=== PATIENT | male | born 1955 | race Caucasian/White ===

== ENCOUNTER 2022-04-29 07:54 | Emergency (ER) | payer BC, SELFPAY ==
[2022-04-29 08:07] VITALS: BP 152/108; PULSE 96; RESP 18; TEMP 36.8; O2SAT 94
[2022-04-29 09:27] LABS: Influenza A QL RT-PCR Negative (Negative); Influenza B QL RT-PCR Negative (Negative); SARS-CoV-2 RNA PCR Positive
--- NOTE | 2022-04-29 10:48 | ED.URI ---
HPI - URI/Sore Throat General Chief Complaint: Upper Respiratory Infection Stated Complaint: URI Time Seen by Provider: 04/29/22 08:02 History of Present Illness HPI Narrative: Patient is a 66-year-old male who presents ER with cold symptoms. Ongoing for 2 to 3 days. Sinus congestion with sore throat and cough. Has discomfort when he lays backwards and feels like he is gagging. Has pain with swallowing due to sore throat. No chest pain or chest pressure. Reports was also sick but was not tested for COVID or flu. No alleviating factors. Related Data Home Medications Medication Instructions Recorded Confirmed aspirin 81 mg tablet,delayed 81 mg PO DAILY 08/16/19 04/08/22 release (Adult Low Dose Aspirin) niacin 1,000 mg tablet,extended 1,000 mg PO ONCE 08/16/19 04/08/22 release 24 hr omega-3 fatty acids 1,000 mg 1,000 mg PO DAILY 08/16/19 04/08/22 capsule (Fish Oil Concentrate) Allergies Allergy/AdvReac Type Severity Reaction Status Date / Time No Known Allergies Allergy Verified 04/08/22 08:15 Review of Systems Review of Systems: All systems reviewed & are unremarkable except as noted in HPI and below Constitutional: Constitutional: Denies chills, Reports fatigue and Reports fever(s) ENT: Reports nasal congestion and Reports sore throat Cardiovascular: Cardiovascular: Denies chest pain, Denies rapid heart rate and Denies radiating jaw, neck or arm pain Respiratory: Respiratory: Reports cough and Denies dyspnea Gastrointestinal: Gastrointestinal: Denies abdominal pain, Denies nausea and Denies vomiting [facility] Past Medical History Medical History (Updated 04/29/22 @ 10:49 by Ivan Gunter MD) Cholecystectomy planned Surgical History Surgical History H/O hernia repair Family History Family History Father Family history of lung cancer Patient's father is Sibling Family history of heart disease in male family member before age 55 Mother Hypertension Family history of heart disease in male family member before age 55 Other Diabetes mellitus Social History Social History Smoking status: Never smoker Second hand tobacco smoke exposure: No Alcohol intake: current Alcohol use details: social Substance use: never Substance use type: does not use Exam Narrative: GENERAL: Well-appearing, well-nourished, and in no acute distress. HEAD: Normocephalic, atraumatic. EYES: PERRL and EOMI. ENT: Mucous membranes moist. Uvula mildly edematous and red. No tonsillar hypertrophy or exudate. NECK: Supple. CHEST: Clear to auscultation. No respiratory distress. HEART: Regular rate and rhythm. Normal peripheral pulses. EXTREMITIES: Normal range of motion. No edema. NEURO: Alert and oriented x3. PSYCH: Normal mood and affect. Course Course Emergency Course: Patient resting comfortably. Informed of results. We will give 1 dose of dexamethasone for uvulitis. Discharge. Did for home. Vital Signs Vital signs: Vital Signs Temperature 98.3 F 04/29/22 08:07 Pulse Rate 96 04/29/22 08:07 Respiratory Rate 18 04/29/22 08:07 Blood Pressure 152/108 H 04/29/22 08:07 Pulse Oximetry 94 04/29/22 08:07 Oxygen Delivery Room Air 04/29/22 08:07 Temperature 98.3 F 04/29/22 08:07 Pulse Rate 96 04/29/22 08:07 Respiratory Rate 18 04/29/22 08:07 Blood Pressure 152/108 H 04/29/22 08:07 Pulse Oximetry 94 04/29/22 08:07 Oxygen Delivery Room Air 04/29/22 09:58 MDM - URI/Sore Throat Lab Data Labs: Lab Results 04/29/22 Range/Units 08:43 Influenza A (RT-PCR) Negative (Negative) Influenza B (RT-PCR) Negative (Negative) SARS-CoV-2 RNA (RT-PCR) Positive A Strep Screen Presumptive Negative *(Reference Range
[2022-04-29 11:04] VITALS: BP 152/85; PULSE 93; RESP 20; O2SAT 92
== END 2022-04-29 11:05 | disposition home or self-care (01) ==
PROVIDERS: Emergency Provider Emergency Medicine; PCP Internal Medicine
DX: U07.1 COVID-19 (principal); K12.2 Cellulitis and abscess of mouth; Z79.82 Long term (current) use of aspirin
CPT/HCPCS: 87081; 87636; 87880; 99283; J8540

== ENCOUNTER 2022-07-17 09:43 | Outpatient (CLI) | payer BC, MEDICARE, SELFPAY ==
--- NOTE | 2022-07-17 11:04 | ECG_ITS ---
Measurements Intervals [place] Rate: 71 P: -21 NC: 186 QRS: -34 QRSD: 109 T: 6 QT: 423 QTc: 460 Interpretive Statements SINUS RHYTHM MARKED LEFT AXIS DEVIATION [QRS AXIS < -30] VOLTAGE CRITERIA FOR LVH [MEETS CRITERIA IN ONE OF: R(aVL), S(V1), R(V5), R(V5/V6)+S(V1)] NONSPECIFIC T-WAVE ABNORMALITY ABNORMAL ECG NO PREVIOUS ECG AVAILABLE FOR COMPARISON Electronically Signed On 07-17-2022 14:00:44 [employer]EWEL[employer] APPRENTICE by Jassi Harris M.D.
[2022-07-17 12:07] LABS: Basophils Percent Auto 0.4 % (0.2-1.2); Eosinophils Absolute Auto 0.4 K/mm3 (0-0.3); Eosinophils Percent Auto 5.5 % (0-4.4); Hematocrit 54.9 % (42.0-52.0); Hemoglobin 18.4 g/dL (14.0-18.0); Immature Granulocyte Absolute 0.02 K/mm3 (0.00-0.031); Immature Granulocyte Percent A 0.3 % (0-0.5); Lymphocytes Absolute Auto 1.64 K/mm3 (0.9-3.2); Lymphocytes Percent Auto 21.9 % (18.3-44.2); Mean Corpuscular HGB Conc 33.5 g/dl (32-36); Mean Corpuscular Hemoglobin 31.5 pg (26-34); Mean Platelet Volume 10.1 fl (7.4-10.4); Monocytes Absolute Auto 0.6 K/mm3 (0.1-0.6); Monocytes Percent Auto 7.9 % (2.6-8.5); Neutrophils Absolute Auto 4.8 K/mm3 (1.3-6.7); Platelet Count Result 240 k/mm3 (150-375); Red Blood Count 5.84 M/mm3 (4.6-6.20); Red Cell Distribution Width 12.3 % (11.5-14.5); White Blood Count 7.5 K/mm3 (4.5-10.0)
[2022-07-17 12:16] LABS: Urine Cotinine NEGATIVE
[2022-07-17 12:17] LABS: Albumin Level 4.6 g/dL (3.5-5.1); Anion Gap 7 mmol/L (8-16); Blood Urea Nitrogen 16 mg/dL (9-20); Calcium 8.9 mg/dL (8.4-10.2); Carbon Dioxide 29 mmol/L (22-30); Chloride 101 mmol/L (98-107); Estimated Glomerular Filt Rate > 60; Glucose 104 mg/dL (65-110); Potassium 3.5 mmol/L (3.4-5.0); Sodium 137 mmol/L (137-145)
[2022-07-17 12:19] LABS: Hemoglobin A1C 5.2 % (<5.7)
== END 2022-07-17 09:44 | disposition home or self-care (01) ==
PROVIDERS: PCP Family Medicine Sports Medicine; Visit Provider Orthopaedic Surgery
DX: Z01.812 Encounter for preprocedural laboratory examination (principal); Z01.810 Encounter for preprocedural cardiovascular examination; M17.12 Unilateral primary osteoarthritis, left knee; R94.31 Abnormal electrocardiogram [ECG] [EKG]
CPT/HCPCS: 80048; 80307; 82040; 83036; 85025; 87081; 93005

== ENCOUNTER 2024-09-27 00:17 | Emergency (ER) | payer MEDICARE, SELFPAY ==
[2024-09-27] VITALS (20 sets, daily range): BP systolic 164–197; BP diastolic 103–118; PULSE 66–97; RESP 13–23; TEMP 36.4; O2SAT 89–99
--- NOTE | ~2024-09-27 | CT_ITS ---
Non-contrast Head CT History: Status post fall, altered mental status Technique: Axial non-contrast imaging of the brain was performed. Dose reduction technique was used on this scan by utilizing automated exposure control and iterative reconstruction technique. The dose -length product (DLP) was 681.00 mGy-cm. Findings: There is no evidence of intracranial hemorrhage, mass lesion, or acute infarct. Brain par enchyma appears normal. The ventricles and subarachnoid spaces are normal in size. The calvarium ap pears normal. The visualized paranasal sinuses and mastoid air cells are clear. Impression: No significant abnormality seen. Reviewed, dictated and finalized at location . Impression: No significant abnormality seen.
--- NOTE | ~2024-09-27 | CT_ITS ---
Noncontrast CT scan of the cervical spine Technique: Multiple contiguous axial [address] images of the cervical spine were obtained and rec onstructed in 2D sagittal and coronal planes on the acquisition scanner. Dose reduction technique was used on this scan by utilizing automated exposure control, adjustment of the mA and/or kV according to patient size. The dose-length product (DLP) was 522.14 mGy-cm. Clinical History: Pain Findings: No fractures or dislocations. There is straightening of the normal cervical lordosis. Ther e is advanced degenerative disc narrowing at C4-C5, C5-C6, and C6-C7. There is mild left neural jewel inal narrowing at C3-C4 with left facet arthropathy and left osteophyte complex. There is bilateral n eural foraminal narrowing, left worse than right, at C4-C5. There is left neural foraminal narrowing at C5-C6. There is mild bilateral neural foraminal narrowing at C6-C7, right worse than left. No prev ertebral soft tissue swelling. Impression: No fracture or subluxation of the cervical spine. Moderate degenerative spondylosis, as above. Reviewed, dictated and finalized at location . Impression: No fracture or subluxation of the cervical spine. Moderate degenerative spondylosis, as above.
--- NOTE | ~2024-09-27 | XR_ITS ---
Portable chest x-ray Comparison: None Clinical History: Dizziness Findings: Lungs are clear, without focal consolidation or pleural effusion. Cardiomediastinal silho uette is prominent. Bones and soft tissues are unremarkable. Impression: Clear lungs. Reviewed, dictated and finalized at location M. Impression: Clear lungs.
--- NOTE | ~2024-09-27 | CT_ITS ---
CT ANGIOGRAM NECK AND HEAD History: Altered mental status, dizziness. Technique: Serial spiral axial images through the head and neck were obtained during arterial phase I V injection of 100 cc of Omnipaque 350. 3-D postprocessing and MIP images were then reconstructed on the remote workstation. Dose reduction technique was used on this scan by utilizing automated exposur e control and iterative reconstruction technique. The dose-length product (DLP) was 1205.88 mGy-cm. CTA neck findings: Bilateral vertebral arteries are patent. Bowel, carotid, internal carotid, and ex ternal carotid arteries are patent. No large vessel occlusion or stenosis. No aneurysm. The proximal right internal carotid artery demonstrates 0% stenosis relative to the normal distal artery lumen francesca meter. The proximal left internal carotid artery demonstrates 0% stenosis relative to the normal dist al artery lumen diameter. CTA head findings: Distal vertebral arteries, basilar artery, and posterior cerebral arteries are pat ent. Distal internal carotid arteries, middle cerebral arteries, and anterior cerebral arteries are p atent. No large vessel occlusion or stenosis. No aneurysm. Impression: No significant abnormality. Reviewed, dictated and finalized at location . Impression: No significant abnormality.
--- OUTSIDE RECORDS SUMMARY | 2024-09-27 00:21 | XMS_ITS | Data Portability ---
Author Organization [place] [facility], Main Office Address [address] [place] [address] Care Team Providers Care Summer Internship Name Role Phone GAYATHRI CLARK Primary Care Provider GAYATHRI CLARK Referring Provider [phone] Assessment Encounter Date Assessment Date Assessment LastModified by Organization Details LastModified Time 06/10/2023 06/10/2023 HPI: Patient returns. He is here for cortisone injection into both of his knees. It is about a week early from his 3 month ivelisse. Last shots were right at 3 months ago and work well for him. He is getting ready to leave town for the next several months to go to [place] and then [place]. He wished to have injections for left. Physical exam: 67-year-old male alert pleasant. He walks relatively well without her assistance. Has mild effusions in both knees. Range of motion is from 3-135 degrees bilaterally. Mild tenderness over both medial joint lines to palpation. No lateral joint line tenderness. No patellofemoral grind. No increased swelling in either lower extremity. After ChloraPrep was used on skin 20 mg Kenalog and 3 cc of 0.5% ropivacaine was injected into both knees. Risk of infection discussed. Impression: 67-year-old male has moderately severe medial compartment osteoarthritis in both knees. Shots continue give him excellent relief. He will call when he feels he needs additional injection is needed. [email or web address] Not available 06/10/2023 09:58:25 09/17/2023 09/17/2023 The patient has severe primary osteoarthritis both knee joints as described. Under sterile conditions I injected both knee joints in the office today with 4 cc 0.5% Marcaine and 20 mg of Kenalog each. The patient tolerated procedure well I will see him back as needed he was given a brochure on [facility] today if he decides to come back he will let us know what he wants to do with cortisone versus gel shots. He voiced understanding agrees above plan call for any further problems difficulties or questions. Not available 09/17/2023 10:05:47 12/22/2023 12/22/2023 The patient has severe primary osteoarthritis both knee joints as described. Under sterile conditions I injected both knee joints in the office today with 4 cc 0.5% Marcaine and 20 mg of Kenalog each. The patient tolerated the procedure well. I will see him back in 3 months if necessary to do this again. If the shots do not work well for him he will call and let us know he wants to try gel shots if necessary. He was also given a refill on his naproxen 500 mg b.i.d. with food he will continue with this. He voiced understanding agrees above plan call for any further problems difficulties or questions. Not available 12/22/2023 15:32:46 03/24/2024 03/24/2024 The patient has severe primary osteoarthritis both knee joints. Under sterile conditions I injected both knee joints in the office today with 4 cc 0.5% bupivacaine and 20 mg of Kenalog each. The patient tolerated the procedures well. The patient is going to [place] for 6 months for the winter wanted a copy of his x-rays to take with him so he can get injections out there if necessary over the winter. We will also give him a refill of naproxen 500 mg b.i.d. with food at his request. I will see him back here as needed the patient voiced understanding agrees above plan he will call for any further problems difficulties or questions. Not available 03/24/2024 09:13:10 09/23/2024 09/23/2024 The patient has severe primary osteoarthritis both knee joints left worse than right. We talked about treatment options today in detail he is going to continue with naproxen 500 mg twice a day he would like shots of cortisone both knees therefore under sterile conditions I injected both knee joints in the office with 4 cc 0.5% bupivacaine and 20 mg of Kenalog each. The patient tolerated both procedures well. I will see him back as needed we can do this again in 3 months if necessary we also talked about the possibility of doing gel shot series if the cortisone does not work very well for him we will can try that. For now he is going to stick with cortisone he will call us when he needs anything else he voiced understanding agrees with the above plan. Not available 09/23/2024 12:00:59 Plan of Treatment Reminders Order Date Submit Date Provider Last Modified By Organization Details Last Modified Time Details Appointments None recorded. Lab None recorded. Referral None recorded. Procedures injection/a spiration joint/bursa (PROC) 2024 025 [email or web address] In-Office Order, Internal Use Only DO Not Attach Compendium DO Not Attach Compendium, Do Not Delete/merge, [id number] 11:44:44 injection/a spiration joint/bursa (PROC) 2023 024 [email or web address] In-Office Order, Internal Use Only DO Not Attach Compendium DO Not Attach Compendium, Do Not Delete/merge, [id number] 09:03:39 injection/a spiration joint/bursa (PROC) - in office procedure, administere d by provider 2023 024 [email or web address] In-Office Order, Internal Use Only DO Not Attach Compendium DO Not Attach Compendium, Do Not Delete/merge, [id number] 4 15:17:42 injection/a spiration joint/bursa (PROC) - in office procedure, administere d by provider 2023 024 [email or web address] In-Office Order, Internal Use Only DO Not Attach Compendium DO Not Attach Compendium, Do Not Delete/merge, [id number] 11:28:59 injection/a spiration joint/bursa (PROC) - in office procedure, administere d by provider 2022 023 In-Office Order, Internal Use Only DO Not Attach Compendium DO Not Attach Compendium, Do Not Delete/merge, [id number] 09:27:22 Surgeries None recorded. Imaging XR, knee 2024 025 [email or web address] [facility] [place], [address], [place], [address], 5 13:22:59 XR, knee 2022 023 [email or web address] [facility] [place], [address], [place], [address], 3 20:16:41 Medication Orders bupivacaine HCl 0.5 % (5 mg/mL) injection solution 2024 025 [id number], [address], [place], [place], [id number], 5 13:22:59 Kenalog 10 mg/mL suspension for injection 2024 025 [employer] [facility] #33449, [address], [place], [place], [id number], 5 13:22:59 bupivacaine HCl 0.5 % (5 mg/mL) injection solution 2023 024 [email or web address] [facility] #[id number], [address], [place], [place], [id number], 5 11:42:07 Kenalog 10 mg/mL suspension for injection 2023 024 [email or web address] [facility] #97610, [address], [place], [place], [id number], 5 11:42:18 naproxen 500 mg tablet 2023 024 [email or web address] [facility] #44081, [address], [place], [place], [id number], 4 09:26:25 Kenalog 10 mg/mL suspension for injection [email or web address], [address], [place], [address], 5 11:42:18 Marcaine (PF) 0.5 % (5 mg/mL) injection solution 2023 024 [facility], [address], [place], [address], 5 11:42:23 naproxen 500 mg tablet 2023 024 [email or web address] [facility] #90224, [address], [place], [place], [id number], 4 16:09:56 Kenalog 10 mg/mL suspension for injection [address], [address], [place], [address], 5 11:42:18 Marcaine (PF) 0.5 % (5 mg/mL) injection solution [address], [address], [place], [address], 5 11:42:23 Kenalog 10 mg/mL suspension for injection [address], [address], [place], [address], 5 11:42:18 ropivacaine (PF) 5 mg/mL (0.5 %) injection solution [address], [address], [place], [address], 5 11:42:45 Patient TargetsNo targets recorded. Patient InstructionsNo instructions recorded. Reason for Referral None Reported. Results Created Date Observation Date Name Description Value Unit Range Abnormal Flag Note LastModifiedBy Organization Detail LastModifiedTime 06/10/20 23 XR, knee No observ ation record ed. [email or web address] [facility] [place] [address], [place], [address], 06/10/2023 09:57:10 09/24/19 25 XR, knee No observ ation record ed. [email or web address] [facility] [place] [address], [place], [address], 09/23/2024 12:01:51 Result Notes None recorded. Problems Name Problem SNOMED Code Status Onset Date Resolution Date Notes Provider Name and Address Organization Details Recorded Time Osteoarthr itis 756346856 Active Not Available [facility] 3 20:42:50 Pain of left knee joint 0952568087846 07 Active 2022 Not Available [facility] 3 20:42:50 Pain of bilateral knee joints 4864509085079 04 Active 2021 Not Available [facility] 3 20:42:50 Bilateral osteoarthr itis of knees 6826218040761 07 Active 2022 JOLANTA Barnett, [employer] [facility] 3 09:11:24 Problem Notes None recorded. Procedures Surgical History Date Name Laterality Status Provider Name and Address Organization Details Recorded Time Gallbladder Surgery completed Chelo Corley CNA [employer] [facility] 09/23/2024 11:43:07 Imaging Results Imaging Date Name Status LastModified by Organiz [facility] Details LastModified Time 06/10/2023 XR, knee completed [email or web address] [facility] [place] [address], [place], [address], 06/10/2023 09:57:10 09/23/2024 XR, knee completed [email or web address] [facility] [place] [address], [place], [address], 09/23/2024 12:01:51 Procedure Notes None recorded. Medical Equipment None Reported. Allergies Allergen ID Allergen Name Allergen Category Reaction Reaction Severity Criticality Documentation Date Start Date Code Code System Note Provider Name and Address Organization Details Recorded Time 61365 aspirin medicatio n Not available Not available Not available 08/13/2022 1191 RxNorm Not Available [facility] 3 20:44:53 07912 Aleve PM medicatio n Not available Not available Not available 08/13/2022 33882 58 RxNorm Not Available [facility] 3 20:44:53 36850 Aleve medicatio n Not available Not available Not available 08/13/2022 40618 1 RxNorm Not Available [facility] 3 20:44:53 Medications Name Sig Start Date Stop Date Status Note LastModified by Organization Details LastModified Time amoxicillin 500 mg capsule TAKE 1 CAPSULE BY MOUTH EVERY 8 HOURS FOR 7 DAYS 09/23 completed Not Available Not Available Not Available atorvastati n 40 mg tablet TAKE 1 TABLET BY MOUTH EVERY DAY 09/23 completed Not Available Not Available Not Available metoprolol succinate ER 50 mg tablet,exte nded release 24 hr TAKE 1 TABLET BY MOUTH ONCE DAILY FOR 30 DAYS 06/10 completed Not Available Not Available Not Available hydrochloro thiazide 50 mg tablet TAKE 1 TABLET BY MOUTH ONCE DAILY active Not Available Not Available No t Available cimetidine 400 mg tablet active Not Available Not Available Not Available famotidine 40 mg tablet TAKE 1 TABLET BY MOUTH ONCE DAILY active Not Available Not Available No t Available bupivacaine HCl 0.5 % (5 mg/mL) injection solution Take 40 mg by injection route. 2024 active Not Available Not Available Not Avai lable metoprolol succinate ER 100 mg tablet,exte nded release 24 hr TAKE 1 TABLET BY MOUTH ONCE DAILY FOR 90 DAYS 06/10 completed Not Available Not Available Not Available Kenalog 10 mg/mL suspension for injection Take 40 mg by injection route. 2024 active ND: 0003- 0494- 20 Not Available Not Available Not Available amlodipine 10 mg tablet TAKE 1 TABLET BY MOUTH IN THE EVENING active Not Available Not Available No t Available naproxen sodium 550 mg tablet TAKE 1 TABLET BY MOUTH TWICE A DAY NEEDED FOR PAIN 09/23 completed Not Available Not Available Not Available valsartan 320 mg tablet TAKE 1 TABLET BY MOUTH ONCE DAILY FOR 90 DAYS active Not Available Not Available No t Available hydrochloro thiazide 12.5 mg capsule TAKE 1 CAPSULE BY MOUTH DAILY active Not Available Not Available No t Available diclofenac sodium 75 mg tablet,fritz yed release Take 1 tablet(s) 2 TIMES A DAY by oral route with food active Not Available Not Available No t Available montelukast 10 mg tablet 05/21 completed Not Available Not Available Not Available testosteron e cypionate 200 mg/mL intramuscul ar oil INJECT 1 ML INTRAMUSC ULARLY EVERY 10 DAYS 03/18 completed Not Available Not Available Not Available BD Luer-Pastora Syringe 3 mL 21 gauge x 1 1/2 USE EVERY 2 WEEKS WITH TESTOSTER ONE 06/10 completed Not Available Not Available Not Available lisinopril 40 mg tablet TAKE 1 TABLET BY MOUTH ONCE DAILY active Not Available Not Available No t Available BD Luer-Pastora Syringe 3 mL 22 x 1 1/2 USE 1 SYRINGE EVERY 10 DAYS FOR IM INJECTION 06/10 completed Not Available Not Available Not Available naproxen 500 mg tablet TAKE 1 TABLET BY MOUTH TWICE DAILY WITH FOOD active Not Available Not Available No t Available rosuvastati n 5 mg tablet TAKE 1 TABLET BY MOUTH ONCE DAILY active Not Available Not Available No t Available Marcaine (PF) 0.5 % (5 mg/mL) injection solution Take 8 mL by injection route. 09/23 completed Not Available Not Available Not Available sildenafil (pulmonary hypertensio n) 20 mg tablet TAKE 3 TABLETS BY MOUTH 45 MINUTES PRIOR TO INTERCOUR SE 03/18 completed Not Available Not Available Not Available niacin 2018 active Not Available Not Available Not Avai lable lidocaine (PF) 10 mg/mL (1 %) injection solution In office injection administe red by the provider 05/21 completed [facility]: 0409- 4276- 17 Not Available Not Available Not Available testosteron e 20.25 mg/1.25 gram per pump act.(1.62 %) transdermal gel APPLY 1 PUMP AMOUNT OVER MAX AREA OF EACH UPPER ARM AND SHOULDER DAILY (FOR A TOTAL OF 2 PUMPS/DAY ) 05/21 completed Not Available Not Available Not Available ropivacaine (PF) 5 mg/mL (0.5 %) injection solution in office 09/23 completed Not Available Not Available Not Available Fish Oil 1,000 mg (120 mg-180 mg) capsule Take by oral route. 2018 active Not Available Not Available Not Avai kisha Ramachandran COVID-19 Ag Self Test kit Use as Directed on the Package 07/18 completed Not Available Not Available Not Available Paxlovid 300 mg (150 mg x 2)-100 mg tablets in a dose pack TAKE 2 (150MG) TABLETS OF NIRMATREL VIR WITH ONE (100MG) TABLETS OF RITONAVIR BY MOUTH TWICE DAILY FOR 5 DAYS 07/18 completed Not Available Not Available Not Available Vitals Date Recorded Body height Body mass index (BMI) Body weight Provider Name and Address Organization Details Last Updated DateTime 06/10/2023 177.8 cm 36.4 kg/m2 767775.46 flores Liz Conley Tony [facility] [employer] [facility] 06/10/2023 09:32:35 Date Recorded Body height Body mass index (BMI) Body weight Provider Name and Address Organization Details Last Updated DateTime 09/17/2023 180.34 cm 33.5 kg/m2 805238.17 flores Corley [employer] [facility] [employer] [facility] 09/17/2023 09:49:53 Date Recorded Body height Body mass index (BMI) Body weight Provider Name and Address Organization Details Last Updated DateTime 12/22/2023 180.34 cm 33.2 kg/m2 007133.98 g HUMBLE Thompson [facility] [employer] [facility] 12/22/2023 15:15:15 Date Recorded Body height Body mass index (BMI) Body weight Provider Name and Address Organization Details Last Updated DateTime 03/24/2024 180.34 cm 32.8 kg/m2 787332.21 flores Corley [employer] INTE[employer]ATION [employer] [facility] [employer] [facility] 03/24/2024 09:02:11 Date Recorded Body height Body mass index (BMI) Body weight Provider Name and Address Organization Details Last Updated DateTime 09/23/2024 180.34 cm 32.1 kg/m2 040967.25 flores Whitney DAI Corley [place] [facility] 09/23/2024 11:41:24 Social History Question Answer Notes LastModified by Organizat ion Details LastModified Time Tobacco Smoking Status Never Smoker Not Available [employer] 08/13/2022 20:40:42 What Is Your Level Of Alcohol Consumption? Moderate [id number] Information not available 08/13/2022 Sex: Unknown Functional Status None recorded. Mental Status None recorded. Family History Relationship Description Onset Age of this Age Resolved Age Notes LastModified by Organization Details LastModified Time Father Family history of malignant neoplasm [id number] Not available 08/13/2022 20:41:23 Mother Hypertensive disorder [email or web address] Not available 2022 09:24:57 Medical History Condition Response ARTHRITIS Y GOUT Y HYPERTENSION Y Past Encounters Encounter ID Performer Location Encounter Start Date Encounter Closed Date Diagnosis/Indication Diagnosis SNOMED-CT Code Diagnosis ICD10 Code Diagnosis Note [id number] [facility] [place] [address] [place] [address] 05/21/2022 00:00:00 05/22/2022 14:20:05 [id number] [facility] [place] [address] [place] [address] 07/18/2022 00:00:00 07/24/2022 10:51:38 [id number] MAE Singh [facility] [place] [address] [place] [address] 08/22/2022 13:49:48 08/25/2022 09:43:52 Pain of bilateral knee joints 4457716877 16457 M25.561 M25.562 [id number] Murray Norwood MD [facility] [place] [address] [place] [address] 12/17/2022 09:09:00 12/17/2022 09:59:13 Bilateral osteoarthritis of knees 8998629745 89098 M17.0 [id number] MAE Singh [facility] [place] [address] [place] [address] 03/18/2023 09:36:07 03/18/2023 10:01:28 Bilateral osteoarthritis of knees 0335991416 92146 M17.0 [id number] MAE Singh [facility] [place] [address] [place] [address] 06/10/2023 08:54:59 06/10/2023 10:05:27 Bilateral osteoarthritis of knees 0821128445 56987 M17.0 [id number] MAE Hobbs [facility] [place] [address] [place] [address] 09/17/2023 09:41:43 09/17/2023 10:29:00 Bilateral osteoarthritis of knees 8678853102 02922 M17.0 Pain of bi lateral knee joints 9109583408 76897 M25.561 M25.622 [id number] MAE Hobbs [facility] [place] [address] [place] [address] 12/22/2023 15:10:19 12/22/2023 16:05:30 Bilateral osteoarthritis of knees 8505495671 20365 M17.0 Pain of bi lateral knee joints 5514770609 29712 M25.561 M25.987 [id number] MAE Hobbs [facility] [place] [address] [place] [address] 03/24/2024 08:57:05 03/24/2024 09:52:49 Bilateral osteoarthritis of knees 3575655020 10362 M17.0 Pain of bi lateral knee joints 3784413827 45369 M25.561 M25.299 [id number] MAE Hobbs [facility] [place] [address] [place] [address] 09/23/2024 11:29:49 09/23/2024 12:14:33 Bilateral osteoarthritis of knees 3966185692 84181 M17.0 Pain of bi lateral knee joints 1262300164 53452 M25.561 M25.562 Health Concerns Section Related Observation LastModified by Organization Detai ls LastModified Time None Recorded Concern Status LastModified by Organization Details LastModified Time None Recorded Advance Directives Directive None Recorded Payers Encounter Date Sequence Insurance Name Policy Number Policy Bryan Covered Member ID Bryan Member ID Guarantor Name 06/10/2023 1 [place] Mitch Melara Niko [id number] Mitch Niko 09/17/2023 1 [place] Melara Niko [id number] 3 Mitch Niko 09/17/2023 2 [place] [id number] Mitch Melara Niko [id number] Mitch Niko 12/22/2023 1 [place] Mitch W Etoile [id number] Mitch Etoile 03/24/2024 1 [place] Mitch W Etoile [id number] 3 Mitch Niko 03/24/2024 2 [id number] Mitch W Etoile [id number] Mitch Niko 09/23/2024 1 [place] Mitch W Etoile [id number] 3 Mitch Niko 09/23/2024 2 [id number] Mitch Melara Niko [id number] Mitch Niko Notes Date Note Type Note Provider Name and Address Organization Details Recorded Time 09/17/2023 text/html Patient returns with bilateral knee pain he has severe primary osteoarthritis both knee joints with mmdd-lr-xipx changes in medial and patellofemoral compartments. He states the left 1 hurts worse than the right it looks slightly worse on the left than the right. Denies any new trauma or injury no new symptoms or complaints no erythema effusion or signs of infection. A shot of cortisone 3 months ago worked very well for him. He is trying to put off total knee arthroplasty for awhile. We did talk about the possibility of doing gel shots he is never heard of these so I gave him a brochure on this today and we discussed it in detail he may consider this at some point down the road. Today he would like cortisone both knees. MAE Hobbs [address], [place], [address], [place] [employer] 09/17/2023 10:05:57 12/22/2023 text/html patient returns requesting bilateral knee cortisone injections he had these done 3 months ago they worked well for about 2-1/2 months now his pain has returned denies any new trauma or injury no new symptoms or complaints. He has severe primary osteoarthritis in both knees with avco-oq-svyc changes in the medial and patellofemoral compartments. Left 1 hurts a little worse than the right the patient is trying to avoid total knee arthroplasty for now we have talked about gel shots today and in the past but he prefers cortisone because it works well for him if the cortisone stops working we can always try the gel shots. He also takes naproxen 500 mg b.i.d. he would like a refill on this today as well. MAE Hobbs [address], [address], [place], [address], [employer] [facility] 12/22/2023 15:33:23 03/24/2024 text/html Patient returns for bilateral knee pain he has severe primary osteoarthritis both knees shots of cortisone gave him excellent relief for about 3 months at a time. The patient has enji-le-escs changes in medial and patellofemoral compartments the left 1 hurts a little worse than the right he does take naproxen 500 mg twice a day this helps as well. He denies any new symptoms no new trauma or injury to either knee he comes in today requesting repeat cortisone injections both knees it has been a little over 3 months since the last injections. MAE Hobbs [address], [address], [place], [address], [employer] [facility] 03/24/2024 09:13:55 09/23/2024 text/html The patient retu rns complaining of bilateral knee pain we have not seen him for over 6 months. He had shots of cortisone last time which gave him excellent relief for about 3 months that his pain returned he has been out of town for quite awhile and has waited to come back into town before he decided to pursue further treatment. He denies any new trauma or injury to either knee he has aching pain in the medial and patellofemoral compartments previous x-rays show essentially flhy-np-wztc changes there left worse than right. He takes naproxen twice a day which helps currently his pain is about a 3 on a scale of 1-10 today's little better day for him. He is trying to avoid total knee arthroplasty for awhile he would rather get by with conservative measures since cortisone does work well for him for at least 3 months at a time. We are getting new x-rays today as his old ones are more than a year old. New past medical history sheet was reviewed and signed on the intake sheet of today's date drug allergies current medications family social history previous surgical history 10 point review of systems was reviewed and discussed in detail today with the patient. MAE Hobbs [address] [place] [address], [place] [address], [place], [address], [place] [facility] [employer] [facility] [employer] [facility] 09/23/2024 12:03:01
--- NOTE | 2024-09-27 01:10 | ECG_ITS ---
Test Date: 2024-09-27 01:18:51 Measurements Intervals [place] Rate: 87 P: 50 HI: 203 QRS: -29 QRSD: 116 T: 14 QT: 405 QTc: 488 Interpretive Statements SINUS RHYTHM INCOMPLETE RIGHT BUNDLE BRANCH BLOCK DELAYED PRECORDIAL R/S TRANSITION LEFT VENTRICULAR HYPERTROPHY WITH ST-T CHANGE BASELINE ARTIFACT- I, II, III, AVR, AVL, AVF, V1-V6 BORDERLINE ECG No previous ECG available for comparison Electronically Signed On 09-27-2024 06:21:27 CDT by Lauro Caicedo D.O.
--- NOTE | 2024-09-27 01:23 | ED_ITS ---
HPI - Altered Mental Status General Chief Complaint: Altered Mental Status Stated Complaint: ams Time Seen by Provider: 09/27/24 01:18 Source: patient and family Limitations: no limitations History of Present Illness HPI narrative: Patient presents with report of altered mental status and a fall. He had eaten dinner at 4pm and fell around the same time. After that, states he forgot where he was. Why he fell is unclear. says he did not trip. He does not recall falling. No prior TIA/CVA. He denies any ear pain but has had an ache near/in front of his ears. He had 1 drink with dinner. No recreational drugs. When he was having symptoms, they checked his BP and it was 178/128. He is on antihypertensives and took his meds this morning but does not routinely check his BP. No gait instability according to or patient but she was concerned about the fact that he fell. He felt dizzy, still feels lightheaded but denies it being rotational or a sense of spinning. He has had a headache since yesterday and including today. Denies weakness or paresthesias. Not on anticoagulation. No blurred vision or diplopia. No chest pain or shortness of breath. No abdominal pain. He has had bilateral tinnitus. No hearing changes. Related Data Home Medications ?Medication ?Instructions ?Recorded ?Confirmed ?Last Taken ?Type cimetidine 400 mg tablet 400 mg PO QPM 07/17/22 03/01/24 Unknown History naproxen sodium 550 mg tablet 550 mg PO PRN PRN pain 07/17/22 03/01/24 Unknown History Allergies Allergy/AdvReac Type Severity Reaction Status Date / Time No Known Allergies Allergy Verified 09/27/24 00:30 [facility] Past Medical History Medical History (Updated 09/28/24 @ 00:00 by Jacy Puckett) Cholecystectomy planned Surgical History Surgical History H/O hernia repair Family History Family History Father Family history of lung cancer Patient's father is Sibling Family history of heart disease in male family member before age 55 Mother Hypertension Family history of heart disease in male family member before age 55 Other Diabetes mellitus Social History Social History Smoking status: Never smoker Second hand tobacco smoke exposure: No Additional smoking assessment comments: DENIES ANY FORM OF TOBACCO USE Alcohol intake: current Drinks per week: 7 Alcohol use details: social Substance use: never Substance use type: does not use Living arrangements: with family Spiritual care concerns: No Exam 2 Narrative: GENERAL: Well-appearing, well-nourished, and in no acute distress. HEAD: Normocephalic, atraumatic. EYES: Non injected, non icteric. Patient has horizontal nystagmus, fatigable but otherwise EOMI. No vertical nystagmus. Normal peripheral crowell. ENT: Nares clear, no rhinorrhea or epistaxis. Clear tympanic membranes bilaterally. NECK: Supple. CHEST: Speaking in full sentences. No respiratory distress. HEART: Regular rate and rhythm. . ABDOMEN: Soft, nondistended. EXTREMITIES: Normal range of motion. No lower extremity edema. SKIN: Warm, dry, no rash. NEURO: No focal deficits. Alert and oriented x3. No ataxia on finger nose finger. No facial asymmetry. Answers questions appropriately. follows commands. Speaks clearly without aphasia or dysarthria. Moves all extremities. PSYCH: Normal mood and affect. Course Vital Signs Vital signs: Vital Signs Temperature 97.6 F 09/27/24 00:18 Pulse Rate 92 09/27/24 00:18 Respiratory Rate 20 09/27/24 00:18 Blood Pressure 197/114 H 09/27/24 00:18 Pulse Oximetry 96 09/27/24 00:18 Oxygen Delivery Room Air 09/27/24 00:18 Temperature 97.6 F 09/27/24 00:18 Pulse Rate 66 09/27/24 05:26 Respiratory Rate 18 09/27/24 05:26 Blood Pressure 178/115 H 09/27/24 05:26 Pulse Oximetry 96 09/27/24 05:27 Oxygen Delivery Room Air 09/27/24 05:27 Oxygen Flow Rate 2 09/27/24 04:27 MDM - Altered Mental Status MDM Narrative Medical decision making narrative: This is a 68 year old male who presents to the emergency department with report of headache of 2 days duration, dizziness, tinnitus and then today a fall after which he had altered mental status and was noted to be hypertensive. In the emergency department he is afebrile vital signs notable for hypertension. The patient is protecting their airway which is patent. An IV is established by nursing staff blood work sent to the lab for evaluation. An EKG will be performed. NIHSS was evaluated per below. NIHSS Level Of consciousness: 0 Month and age:0 Follows commands:0 Gaze palsy:0 Visual crowell:0 Facial palsy:0 Left arm motor drift:0 Right arm motor drift:0 Left leg motor drift:0 Right leg motor drift:0 Limb ataxia:0 Sensation:0 Aphasia:0 Dysarthria:0 Extinction:0 Total: 0 DIFFERENTIAL DIAGNOSES Considered Stroke (CVA / TIA) mimics including but not limited to: migraines, hypoglycemia, seizures/Rishabh's paralysis, sepsis/severe infections in patients with prior strokes (e.g. recrudescence), syncope, brain masses, transient global amnesia, panic attack/hyperventilation, and conversion disorders. Patient describes dizziness without distinct vertiginous symptoms. However, DIFFERENTIAL DIAGNOSIS Central causes: infection ( encephalitis, meningitis, cerebritis); vertebrobasilar arterial insufficiency, subclavian steal syndrome, cerebellar or brainstem hemorrhage or infarction, vertebrobasilar migraine, trauma ( temporal bone fracture, post concussive syndrome); tumor (brainstem or cerebellum); MS; temporal lobe epilepsy Peripheral causes: Foreign body, cerumen impaction, acute otitis media, labyrinthitis, benign paroxysmal positional vertigo, Meniere's disease, vestibular neuronitis, perilymphatic fistula, trauma, motion sickness, acoustic neuroma, ototoxic medications I am concerned he might be experiencing hypertensive encephalopathy given the blood pressure and degree of confusion without unilateral symptoms. CT non con negative for acute process. Will order CTA brain and carotid and give IV push of 10mg labetalol. If hypertensive encephalopathy, goal BP for the first 24 hours is SBP 148mmHg or MAP 106mmHg (only a 25% reduction). BNP elevated, though not to a degree to suggest acute heart failure based on the reference range of the assay for patient's age. Patient is reassessed at 3:25 a.m.. He states he still feels a little dizzy/lightheaded although this is greatly improving. Will give Valium after obtaining orthostats. Does not feel altered/confused any longer. He states his headache is nearly gone. Ortho stats are reviewed and acceptable. He is reassessed at 4:30 a.m. and states he is completely asymptomatic at this time. No evidence of stroke on imaging and no symptoms now. It does not seem this was a stroke/TIA although this remains a possibility. ABCD2 Risk Score Age greater than or equal to 60: 1 SBP greater than or equal to140 or greater than or equal to DBP ?90 : 1 Symptoms: 0 TIA duration 10-59 min: 1 Diabetes 0 Total Score 3 Per the validation study, 0-3 points confers a 2-day stroke risk of 1.0% and a 7-day stroke risk of 1.2% and a 90-day stroke risk of 3.1%. Shared decision making with patent; We discussed the uncertainty of his presentation symptoms and discussed the range of peripheral versus central etiologies, the possibility although low of TIA/CVA, and the consideration of hypertension as a cause. Patient states he has been taking his blood pressure medication but not routinely checking it. We discussed that we do not know how long he has been having an elevated blood pressure. He will keep a log and call his primary care physician as he is due for a follow-up appointment. Urged him to return if any new, worsening, recurrent, unmanaged symptoms and he verifies understanding is in agreement. Differential Diagnosis Differential diagnosis: Likely other ((see above); hypertensive emergency/urgency/crisis/PRES) Lab Data Attestation: I reviewed the patient's lab results. Lab results narrative: CBC unremarkable as are the rest of the labs including chemistry, thyroid, ammonia, urinalysis and drug screen. 09/27/24 01:19 09/27/24 01:19 Labs: Lab Results 09/27/24 09/27/24 09/27/24 Range/Units 01:19 01:27 01:37 WBC 7.2 (4.5-10.0) K/mm3 RBC 4.63 (4.6-6.20) M/mm3 Hgb 14.7 D (14.0-18.0) g/dL Hct 44.5 (42.0-52.0) % MCV 96.1 (80-100) fl MCH 31.7 (26-34) pg MCHC 33.0 (32-36) g/dl RDW 12.8 (11.5-14.5) % Plt Count 226 (150-375) k/mm3 MPV 10.0 (7.4-10.4) fl Immature Gran % (Auto) 0.3 (0-0.5) % Neut % (Auto) 63.3 (45.5-73.1) % Lymph % (Auto) 25.5 (18.3-44.2) % [place] % (Auto) 6.9 (2.6-8.5) % Eos % (Auto) 3.3 (0-4.4) % Baso % (Auto) 0.7 (0.2-1.2) % Lymph # (Auto) 1.84 (0.9-3.2) K/mm3 [place] # (Auto) 0.5 (0.1-0.6) K/mm3 Eos # (Auto) 0.2 (0-0.3) K/mm3 Baso # (Auto) 0.1 (0.0-0.1) K/mm3 Abs Immat Gran (auto) 0.02 (0.00-0.031) K/mm3 Absolute Neuts (auto) 4.6 (1.3-6.7) K/mm3 Absolute Nucleated RBC 0.000 (0.0-0.012) K/mm3 Nucleated RBC % 0.0 (0.0-0.2) % PT 13.3 (11.1-14.7) Seconds INR 1.0 APTT 28.3 (22.3-36.8) Seconds Sodium 141 (137-145) mmol/L Potassium 3.7 (3.4-5.0) mmol/L Chloride 104 (98-107) mmol/L Carbon Dioxide 28 (22-30) mmol/L Anion Gap 9 (4-12) mmol/L BUN 17 (9-20) mg/dL Creatinine 0.91 (0.7-1.3) mg/dL Estim Creat Clear Calc 83 ml/min Estimated GFR > 60 (59 - ) Glucose 117 H (65-110) mg/dL Lactic Acid 0.9 (0.7-2.0) mmol/L Calcium 9.1 (8.4-10.2) mg/dL Total Bilirubin 0.4 (0.2-1.3) mg/dL AST 24 (17-59) U/L ALT 22 (6-50) U/L Alkaline Phosphatase 52 (38-126) U/L Ammonia Cancelled Total Creatine Kinase 87 (55-170) U/L Troponin I < 0.012 (0.000-0.034) ng/mL NT-Pro-B Natriuret Pep 762 H (19.9-100) pg/mL Total Protein 7.0 (6.3-8.2) g/dL Albumin 4.1 (3.5-5.1) g/dL TSH 2.840 (0.465-4.680) uIU/mL Urine Color (Yellow) Urine Appearance (Clear) Urine pH (5.0-9.0) Ur Specific [place] (1.001-1.035) Urine Protein (Negative) mg/dL Urine Glucose (UA) (Negative) mg/dL Urine Ketones (Negative) mg/dL Ur Blood (Man) (Negative) Urine Nitrate (Negative) Urine Bilirubin (Negative) Urine Urobilinogen (<2.0) mg/dL Leukocyte Esterase Rfl (Negative) ALICE/UL Urine RBC (0-2) /hpf Urine WBC (0-3) /hpf Ur Squamous Epith Cells (Few) /hpf Urine Bacteria /hpf Urine Casts Salicylates < 1.0 L (2-20) mg/dL Urine Opiates Screen (Negative) Urine Methadone Screen (Negative) Acetaminophen < 10 L (10-30) ug/mL Ur Barbiturates Screen (Negative) Ur Phencyclidine Scrn (Negative) Ur Amphetamine Screen (Negative) U Benzodiazepines Scrn (Negative) Urine Cocaine Screen (Negative) U Cannabinoids Screen (Negative) Ethyl Alcohol < 10 (<10) mg/dL Influenza A (RT-PCR) Negative (Negative) Influenza B (RT-PCR) Negative (Negative) RSV (RT-PCR) Negative (Negative) SARS-CoV-2 RNA (RT-PCR) Negative (Negative) 09/27/24 09/27/24 Range/Units 01:58 02:57 WBC (4.5-10.0) K/mm3 RBC (4.6-6.20) M/mm3 Hgb (14.0-18.0) g/dL Hct (42.0-52.0) % MCV (80-100) fl MCH (26-34) pg MCHC (32-36) g/dl RDW (11.5-14.5) % Plt Count (150-375) k/mm3 MPV (7.4-10.4) fl Immature Gran % (Auto) (0-0.5) % Neut % (Auto) (45.5-73.1) % Lymph % (Auto) (18.3-44.2) % [place] % (Auto) (2.6-8.5) % Eos % (Auto) (0-4.4) % Baso % (Auto) (0.2-1.2) % Lymph # (Auto) (0.9-3.2) K/mm3 [place] # (Auto) (0.1-0.6) K/mm3 Eos # (Auto) (0-0.3) K/mm3 Baso # (Auto) (0.0-0.1) K/mm3 Abs Immat Gran (auto) (0.00-0.031) K/mm3 Absolute Neuts (auto) (1.3-6.7) K/mm3 Absolute Nucleated RBC (0.0-0.012) K/mm3 Nucleated RBC % (0.0-0.2) % PT (11.1-14.7) Seconds INR APTT (22.3-36.8) Seconds Sodium (137-145) mmol/L Potassium (3.4-5.0) mmol/L Chloride (98-107) mmol/L Carbon Dioxide (22-30) mmol/L Anion Gap (4-12) mmol/L BUN (9-20) mg/dL Creatinine (0.7-1.3) mg/dL Estim Creat Clear Calc ml/min Estimated GFR (59 - ) Glucose (65-110) mg/dL Lactic Acid (0.7-2.0) mmol/L Calcium (8.4-10.2) mg/dL Total Bilirubin (0.2-1.3) mg/dL AST (17-59) U/L ALT (6-50) U/L Alkaline Phosphatase (38-126) U/L Ammonia < 9 L Total Creatine Kinase (55-170) U/L Troponin I (0.000-0.034) ng/mL NT-Pro-B Natriuret Pep (19.9-100) pg/mL Total Protein (6.3-8.2) g/dL Albumin (3.5-5.1) g/dL TSH (0.465-4.680) uIU/mL Urine Color Yellow (Yellow) Urine Appearance Clear (Clear) Urine pH 6.5 (5.0-9.0) Ur Specific [place] 1.023 (1.001-1.035) Urine Protein Trace (Negative) mg/dL Urine Glucose (UA) Negative (Negative) mg/dL Urine Ketones Negative (Negative) mg/dL Ur Blood (Man) Negative (Negative) Urine Nitrate Negative (Negative) Urine Bilirubin Negative (Negative) Urine Urobilinogen 1.0 (<2.0) mg/dL Leukocyte Esterase Rfl Negative (Negative) ALICE/UL Urine RBC 0-2 (0-2) /hpf Urine WBC 0-5 (0-3) /hpf Ur Squamous Epith Cells None seen (Few) /hpf Urine Bacteria None seen /hpf Urine Casts 0-2 Salicylates (2-20) mg/dL Urine Opiates Screen Negative (Negative) Urine Methadone Screen Negative (Negative) Acetaminophen (10-30) ug/mL Ur Barbiturates Screen Negative (Negative) Ur Phencyclidine Scrn Negative (Negative) Ur Amphetamine Screen Negative (Negative) U Benzodiazepines Scrn Negative (Negative) Urine Cocaine Screen Negative (Negative) U Cannabinoids Screen Negative (Negative) Ethyl Alcohol (<10) mg/dL Influenza A (RT-PCR) (Negative) Influenza B (RT-PCR) (Negative) RSV (RT-PCR) (Negative) SARS-CoV-2 RNA (RT-PCR) (Negative) Imaging Data Attestation: I personally reviewed and interpreted this imaging study as follows: My impression: Cardiomegaly and possible pulmonary edema, most appreciated peripherally . Near loss of costophrenic angle although still appreciable Radiologist's impression: CT head stat rad: No hemorrhage, hydrocephalus, mass effect, or herniation. Bones unremarkable. CT C spine Stat Rad: No acute fracture subluxation. No prevertebral soft tissue swelling. Upper lungs unremarkable. CTA Head/NECK Stat Rad: No acute occlusion, severe stenosis, or aneurysm. No significant stenosis or dissection. ECG Data EKG #1: Attestation: I personally reviewed and interpreted this ECG as follows: ECG completion date: 09/27/24 ECG completion time: 01:18 Prior ECG tracings: available for review (EKG from 07/17/2022 is reviewed which had left axis deviation) Interpretation: Normal sinus rhythm at a rate of 87 beats per minute. MS interval 203 consistent with a first-degree AV block. QRS 116. QT/QTC 405/449. Borderline left axis deviation as QRS is positive in 1, negative in 3 and AVF, and trending towards negative in 2. Incomplete RBBB given QRS less [id number]; RSR' M- shaped pattern in V1-V3; wide, slurred S wave in lateral leads (I, aVL, V5-6). Discharge Plan Discharge Clinical Impression: Fall, Transient alteration of awareness, Hypertension, Dizziness Patient Disposition: Home Condition: Stable Instructions: Antibiotic Form, Hypertension (ED), Lightheadedness (ED), Altered Mental Status (ED), Dizziness (ED), Fall Prevention (ED) Additional Instructions: As we discussed, your workup did not reveal a distinct cause of your symptoms. Your head CT (noncontrast as well as the CTA of head and neck) was normal as were your labs. Continue taking your medications as prescribed and keep a log with your measured blood pressure at home and if you are having any symptoms. Call this morning to make a follow-up appointment with her primary care physician and take this log to your appointment. Return to the emergency department with any new, worsening, unmanaged, recurrent symptoms. Patient Language: Slovenian Prescriptions: No Action cimetidine 400 mg Tablet 400 mg PO QPM naproxen sodium 550 mg tablet 550 mg PO PRN PRN (Reason: pain) (DME) Monoject Safety Syringes 3 mL 21 gauge x 1 1/2 syringe See Rx Instructions .Route Qty: 25 0RF Rx Instructions: As directed amlodipine 10 mg tablet 10 mg PO QPM Qty: 90 1RF lisinopril 40 mg tablet 40 mg PO DAILY Qty: 90 1RF hydrochlorothiazide 50 mg tablet 50 mg PO DAILY Qty: 30 0RF rosuvastatin 5 mg tablet 5 mg PO DAILY Qty: 30 11RF Follow-up/Referrals: Angie Gomez MD [Primary Care Provider] - Stand Alone Forms: Work/School Release IP Time of Disposition: 04:41
[2024-09-27 01:24] LABS: Basophils Absolute Auto 0.1 K/mm3 (0.0-0.1); Basophils Percent Auto 0.7 % (0.2-1.2); Eosinophils Absolute Auto 0.2 K/mm3 (0-0.3); Eosinophils Percent Auto 3.3 % (0-4.4); Hematocrit 44.5 % (42.0-52.0); Hemoglobin 14.7 g/dL (14.0-18.0); Immature Granulocyte Absolute 0.02 K/mm3 (0.00-0.031); Immature Granulocyte Percent A 0.3 % (0-0.5); Lymphocytes Absolute Auto 1.84 K/mm3 (0.9-3.2); Lymphocytes Percent Auto 25.5 % (18.3-44.2); Mean Corpuscular Hemoglobin 31.7 pg (26-34); Mean Corpuscular Volume 96.1 fl (80-100); Monocytes Absolute Auto 0.5 K/mm3 (0.1-0.6); Monocytes Percent Auto 6.9 % (2.6-8.5); Neutrophils Absolute Auto 4.6 K/mm3 (1.3-6.7); Neutrophils Percent Auto 63.3 % (45.5-73.1); Platelet Count Result 226 k/mm3 (150-375); Red Blood Count 4.63 M/mm3 (4.6-6.20); Red Cell Distribution Width 12.8 % (11.5-14.5); White Blood Count 7.2 K/mm3 (4.5-10.0)
[2024-09-27 01:34] LABS: Alanine Aminotransferase 22 U/L (6-50); Albumin Level 4.1 g/dL (3.5-5.1); Alkaline Phosphatase 52 U/L (38-126); Anion Gap 9 mmol/L (4-12); Aspartate Amino Transferase 24 U/L (17-59); Bilirubin,Total 0.4 mg/dL (0.2-1.3); Blood Urea Nitrogen 17 mg/dL (9-20); Calcium 9.1 mg/dL (8.4-10.2); Carbon Dioxide 28 mmol/L (22-30); Chloride 104 mmol/L (98-107); Estimated CRCL calculation 83 ml/min; Estimated Glomerular Filt Rate > 60; Glucose 117 mg/dL (65-110); Potassium 3.7 mmol/L (3.4-5.0); Sodium 141 mmol/L (137-145)
[2024-09-27 01:51] LABS: Prothrombin Time 13.3 Seconds (11.1-14.7)
[2024-09-27 01:52] LABS: Partial Thromboplastin Time 28.3 Seconds (22.3-36.8)
[2024-09-27 01:54] LABS: Acetaminophen < 10 ug/mL (10-30); Ethanol < 10 mg/dL (<10); Lactic Acid Reflex 0.9 mmol/L (0.7-2.0); Salicylate < 1.0 mg/dL (2-20)
[2024-09-27 02:07] LABS: Troponin I < 0.012 ng/mL (0.000-0.034)
[2024-09-27 02:10] LABS: Influenza A QL RT-PCR Negative (Negative); Influenza B QL RT-PCR Negative (Negative); RSV RNA, RT-PCR Negative (Negative); SARS-CoV-2 RNA PCR Negative (Negative)
[2024-09-27] MEDS: MECLIZINE HCL 25 MG TABLET PO (02:11)
[2024-09-27 02:13] LABS: Ammonia < 9 umol/L (9-30)
[2024-09-27 02:32] LABS: Creatine Kinase 87 U/L (55-170)
[2024-09-27 02:34] LABS: NT Pro B Type Natriuretic Pept 762 pg/mL (19.9-100)
[2024-09-27] MEDS: LABETALOL HCL INJ 100 MG/20 ML VIAL 10 MG IV PUSH (02:56)
[2024-09-27 03:09] LABS: Add Urine Microscopic? YES; Appearance Urine Clear (Clear); Bacteria Urine None Seen /hpf; Bilirubin Urine Negative (Negative); Blood Urine Negative (Negative); Color Urine Yellow (Yellow); Glucose Urine UA Negative (Negative); Ketones Urine Negative (Negative); Leukocyte Esterase Ur Negative LEU/UL (Negative); Nitrate Urine Negative (Negative); Non Pathogenic Casts 0-2; Protein Urine Trace mg/dL (Negative); RBC Urine 0-2 /hpf (0-2); Specific Grav Ur 1.023 (1.001-1.035); Squamous Epithelial Cell Urine None Seen /hpf (Few); WBC Urine 0-5 /hpf (0-3); pH Urine 6.5 (5.0-9.0)
[2024-09-27 03:30] LABS: Amphetamine Screen Urine Negative (Negative); Barbiturate Screen Urine Negative (Negative); Benzodiazepines Screen Urine Negative (Negative); Cannabinoid Screen Urine Negative (Negative); Cocaine Screen Urine Negative (Negative); Methadone Screen Urine Negative (Negative); Opiate Screen Urine Negative (Negative); Phencyclidine Screen Urine Negative (Negative)
[2024-09-27] MEDS: diazePAM INJ (*CRX) 10 MG/2 ML SYRINGE 3 MG IV PUSH (03:48)
== END 2024-09-27 05:27 | disposition home or self-care (01) ==
PROVIDERS: Emergency Provider Student in an Organized Health Care Education/Training Program; PCP Family Medicine
DX: R40.4 Transient alteration of awareness (principal); R42 Dizziness and giddiness; I10 Essential (primary) hypertension; Z20.822 Contact with and (suspected) exposure to COVID-19; Z79.899 Other long term (current) drug therapy; W18.39XA Other fall on same level, initial encounter; I45.10 Unspecified right bundle-branch block; I51.7 Cardiomegaly; M47.812 Spondylosis without myelopathy or radiculopathy, cervical region
CPT/HCPCS: 36415; 70450; 70496; 70498; 71045; 72125; 80053; 80143; 80179; 80307; 81001; 82077; 82140; 82550; 83605; 83880; 84443; 84484; 85025; 85610; 85730; 87637; 93005; 96374; 96375; 99284; A9270; J3360; Q9967

== ENCOUNTER 2024-12-21 07:42 | Outpatient (CLI) | payer MEDICARE, SELFPAY ==
--- NOTE | ~2024-12-21 | NM_ITS ---
EXAMINATION: NM ameya stress w perfusion DATE: 12/21/2024 15:30 INDICATION: Palpitations. Chest pain. TECHNIQUE: Rest images were obtained following intravenous administration of 10.3 mCi Tc99m tetrofosm in (Myoview). The patient was infused intravenously with Lexiscan (Regadenoson). Then, 31.2 mCi Tc99m tetrofosmin (Myoview) was administered intravenously, and stress images were obtained. Data was tom nstructed into short axis and horizontal and vertical long axis SPECT images. Gated SPECT images were also obtained. COMPARISON: None. FINDINGS: Small mild perfusion defect at the mid anterolateral segment equivocal for infarct. No othe r perfusion defects to suggest ischemia or other infarct. There is normal left ventricular chamber s ize and wall motion. Borderline left ventricular ejection fraction measuring 47%. IMPRESSION: 1. Equivocal small mild infarct at the mid anterolateral segment. No definitive ischemia or infarct. 2. Borderline decreased left ventricular ejection fraction measuring 47%. Reviewed, dictated and finalized at location A.
--- OUTSIDE RECORDS SUMMARY | 2024-12-21 07:46 | XMS_ITS | Data Portability ---
Author Organization [place] [facility], Main Office Address [address] [place] [address] Care Team Providers [facility] [employer] Name Role Phone GAYATHRI CLARK Primary Care Provider GAYATHRI CLARK Referring Provider [phone] Assessment Encounter Date Assessment Date Assessment LastModified [...] the next several months to go to [place] and then [place]. He wished to have injections for left. [...] procedures well. The patient is going to [place] for 6 months for the winter wanted [...] DO Not Attach Compendium, Do Not Delete/merge, [id number] 5 11:44:44 injection/a spiration joint/bursa (PROC) 2023 024 [email or web address] In-Office Order, Internal Use Only DO Not Attach Compendium DO Not Attach Compendium, Do Not Delete/merge, [id number] 4 09:03:39 injection/a spiration joint/bursa (PROC) - in office procedure, administere d by provider 2023 024 [email or web address] In-Office Order, Internal Use Only DO Not Attach Compendium DO Not Attach Compendium, Do Not Delete/merge, [id number] 4 15:17:42 injection/a spiration joint/bursa (PROC) - in office procedure, administere d by provider 2023 024 [email or web address] In-Office Order, Internal Use Only DO Not Attach Compendium DO Not Attach Compendium, Do Not Delete/merge, [id number] 4 11:28:59 injection/a spiration joint/bursa (PROC) - in office procedure, administere d by provider 2022 023 In-Office Order, Internal Use Only DO Not Attach Compendium DO Not Attach Compendium, Do Not Delete/merge, [id number] 3 09:27:22 Surgeries None recorded. Imaging XR, knee 2024 025 [email or web address] [facility] [place], [address], [place], [address], 5 13:22:59 XR, knee 2022 023 [email or web address] [facility] [place], [address], [place], [address], 3 20:16:41 Medication Orders bupivacaine HCl 0.5 % (5 mg/mL) injection solution 2024 025 [email or web address] [facility] #[id number], [address], [place], [place], [id number], 5 13:22:59 Kenalog 10 mg/mL suspension for injection 2024 025 [email or web address] [facility] #22346, [address], [place], [place], [id number], 5 13:22:59 bupivacaine HCl 0.5 % (5 mg/mL) injection solution 2023 024 [email or web address] [facility] #26349, [address], [place], [place], [id number], 5 11:42:07 Kenalog 10 mg/mL suspension for injection 2023 024 [email or web address] [facility] #46140, [address], [place], [place], [id number], 5 11:42:18 naproxen 500 mg tablet 2023 024 [email or web address] [facility] #84298, [address], [place], [place], [id number], 4 09:26:25 Kenalog 10 mg/mL suspension for injection 2023 024 [email or web address], [address], [place], [address], 5 11:42:18 Marcaine (PF) 0.5 % (5 mg/mL) injection solution 2023 024 [email or web address], [address], [place], [address], 5 11:42:23 naproxen 500 mg tablet 2023 024 [email or web address] [facility] #99381, [address], [place], [place], [id number], 4 16:09:56 Kenalog 10 mg/mL suspension for injection [address], [address] [facility] [address], [place], [address], 5 11:42:18 Marcaine (PF) 0.5 % (5 mg/mL) injection solution [address], [address] [facility], [place], [address], 5 11:42:23 Kenalog 10 mg/mL suspension for injection [address], [address] [facility], [place], [address], 5 11:42:18 ropivacaine (PF) 5 mg/mL (0.5 %) injection solution [address], [address] [facility], [place], [address], 5 11:42:45 Patient TargetsNo targets recorded. Patient InstructionsNo instructions recorded. Reason for Referral None Reported. Results Created Date Observation Date Name Description Value Unit Range Abnormal Flag Note LastModifiedBy Organization Detail LastModifiedTime 06/10/20 23 XR, knee No observ ation record ed. [email or web address] [facility] [place] [address], [place], [address], 06/10/2023 09:57:10 09/24/19 25 XR, knee No observ ation record ed. [email or web address] [facility] [place] [address], [place], [address], 09/23/2024 12:01:51 Result Notes None recorded. Problems Name Problem SNOMED Code Status Onset Date Resolution Date Notes Provider Name and Address Organization Details Recorded Time Osteoarthr itis 594563547 Active Not Available [facility] 3 20:42:50 Pain of left knee joint 3067784673965 07 Active 2022 Not Available [facility] 3 20:42:50 Pain of bilateral knee joints 1810311255577 04 Active 2021 Not Available [facility] 3 20:42:50 Bilateral osteoarthr itis of knees 5864980448926 07 Active 2022 JOLANTA Barnett, [email or web address] 3 09:11:24 Problem Notes None recorded. Procedures Surgical History Date Name Laterality Status Provider Name and Address Organization Details Recorded Time Gallbladder Surgery completed Chelo Corley CNA [email or web address] 09/23/2024 11:43:07 Imaging Results None recorded. Procedure Notes None recorded. Medical Equipment None Reported. Allergies Allergen ID Allergen Name Allergen Category Reaction Reaction Severity Criticality Documentation Date Start Date Code Code System Note Provider Name and Address Organization Details Recorded Time 36491 aspirin medicatio n Not available Not available Not available 08/13/2022 1191 RxNorm Not Available [facility] 3 20:44:53 51775 Aleve PM medicatio n Not available Not available Not available 08/13/2022 82835 58 RxNorm Not Available [facility] 3 20:44:53 19794 Aleve medicatio n Not available Not available Not available 08/13/2022 94522 1 RxNorm Not Available [facility] 3 20:44:53 Medications Name Sig Start Date [...] 40 mg by injection route. 2024 active [facility]: 0003- 0494- 20 Not Available Not Available [...] administe red by the provider 05/21 completed [facility]: 0409- 4276- 17 Not Available Not Available [...] Not Available Not Available Not Avai lable Madie COVID-19 Ag Self Test kit Use as [...] Updated DateTime 09/17/2023 180.34 cm 33.5 kg/m2 748691.17 g Chelo Corley [facility] Mr [facility]ana [facility] 09/17/2023 09:49:53 Date Recorded Body height Body mass index (BMI) Body weight Provider Name and Address Organization Details Last Updated DateTime 09/23/2024 180.34 cm 32.1 kg/m2 307224.25 flores Corley [facility] Mr [employer] 09/23/2024 11:41:24 Date Recorded Body height Body mass index (BMI) Body weight Provider Name and Address Organization Details Last Updated DateTime 12/22/2023 180.34 cm 33.2 kg/m2 875297.98 flores Shayy Patel [facility] Hector [facility] 12/22/2023 15:15:15 Date Recorded Body height Body mass index (BMI) Body weight Provider Name and Address Organization Details Last Updated DateTime 03/24/2024 180.34 cm 32.8 kg/m2 380937.21 flores Corley [facility] Mr [employer] 03/24/2024 09:02:11 Date Recorded Body height Body mass index (BMI) Body weight Provider Name and Address Organization Details Last Updated DateTime 06/10/2023 177.8 cm 36.4 kg/m2 205541.46 flores Conley [facility] 06/10/2023 09:32:35 Social History None recorded. Functional Status Question Answer Note LastModified by Organizat ion Details LastModified Time What is your level of alcohol consumption? Moderate [id number] Information not available 08/13/2022 Mental Status None recorded. Family History Relationship Description Onset Age of this Age Resolved Age Notes LastModified by Organization Details LastModified Time Father Family history of malignant neoplasm [id number] Not available 08/13/2022 20:41:23 Mother Hypertensive disorder Not available 2022 09:24:57 Medical History Condition Response ARTHRITIS Y GOUT Y HYPERTENSION Y Past Encounters Encounter ID Performer Location Encounter Start Date Encounter Closed Date Diagnosis/Indication Diagnosis SNOMED-CT Code Diagnosis ICD10 Code Diagnosis Note [id number] Murray Norwood MD [facility] [place] [address] [place] [address] 05/21/2022 00:00:00 05/22/2022 14:20:05 [id number] Murray Norwood MD [facility] [place] [address] [place] [address] 07/18/2022 00:00:00 07/24/2022 10:51:38 [id number] Murray Norwood MD [facility] [place] [address] [place] [address] 08/22/2022 13:49:48 08/25/2022 09:43:52 Pain of bilateral knee joints 8118513122 00274 M25.561 M25.562 [id number] Murray Norwood MD [facility] [place] [address] [place] [address] 12/17/2022 09:09:00 12/17/2022 09:59:13 Bilateral osteoarthritis of knees 6405352978 29318 M17.0 [id number] Murray Norwood MD [facility] [place] [address] [place] [address] 03/18/2023 09:36:07 03/18/2023 10:01:28 Bilateral osteoarthritis of knees 0784230550 26364 M17.0 [id number] Murray Norwood MD [facility] [place] [address] [place] [address] 06/10/2023 08:54:59 06/10/2023 10:05:27 Bilateral osteoarthritis of knees 4579315487 44231 M17.0 [id number] Gayathri Romo MD [facility] [place] [address] [place] [address] 09/17/2023 09:41:43 09/17/2023 10:29:00 Bilateral osteoarthritis of knees 4748996547 86356 M17.0 Pain of bi lateral knee joints 0924152145 39211 M25.561 M25.894 [id number] Gayathri Romo MD [facility] [place] [address] [place] [address] 12/22/2023 15:10:19 12/22/2023 16:05:30 Bilateral osteoarthritis of knees 4100577662 44834 M17.0 Pain of bi lateral knee joints 2093777624 03112 M25.561 M25.132 [id number] Gayathri Romo MD [facility] [place] [address] [place] [address] 03/24/2024 08:57:05 03/24/2024 09:52:49 Bilateral osteoarthritis of knees 3643699583 21803 M17.0 Pain of bi lateral knee joints 1954768272 62415 M25.561 M25.641 [id number] Gayathri Romo MD [facility] [place] [address] [place] [address] 09/23/2024 11:29:49 09/23/2024 12:14:33 Bilateral osteoarthritis of knees 3050679136 26920 M17.0 Pain of bi lateral knee joints 6568239413 96382 M25.561 M25.562 Health Concerns Section Related Observation LastModified by Organization Detai ls LastModified Time None Recorded Concern Status LastModified by Organization Details LastModified Time None Recorded Advance Directives Directive None Recorded Payers Insurance Date Sequence Insurance Name Policy Number Policy Bryan Covered Member ID Bryan Member ID Guarantor Name 03/23/2024 2 [place] [id number] Mitch Goldsmithds [id number] Mitch Niko 07/04/2023 1 [place] [id number] Christina Conrad-Niko [id number] Mitch Niko 09/21/2024 1 [place] Mitch Melara Niko [id number] Mitch Belpre 09/28/2024 2 [place] [id number] Mitch Melara [place] [id number] Mitch Niko 09/17/2023 2 [place] [id number] Christina Conrad-Niko [id number] Mitch Niko 03/23/2024 3 [place] Mitch Belpre [id number] Mitch Belpre 03/23/2024 2 [place] [id number] Mitch Melara Belpre [id number] Mitch Pope Notes Date Note Type Note Provider Name and Address Organization Details Recorded Time 09/17/2023 text/html Patient returns with bilateral knee pain he has severe primary osteoarthritis both knee joints with pksn-fe-uqnl changes in medial and patellofemoral compartments. He [...] would like cortisone both knees. MAE Hobbs [address] [place] [address], [place] [address], [place], [address], [place] [facility] 09/17/2023 10:05:57 12/22/2023 text/html patient returns requesting bilateral knee cortisone injections he had these done 3 months ago they worked well for about 2-1/2 months now his pain has returned denies any new trauma or injury no new symptoms or complaints. He has severe primary osteoarthritis in both knees with zjxr-if-dlee changes in the medial and patellofemoral compartments. [...] MAE Hobbs [address], [place], [address], [facility] [employer] [employer] [facility] 12/22/2023 15:33:23 03/24/2024 text/html Patient returns for bilateral knee pain he has severe primary osteoarthritis both knees shots of cortisone gave him excellent relief for about 3 months at a time. The patient has lfck-jt-kgxo changes in medial and patellofemoral compartments the [...] MAE Hobbs [address], [place], [address], [employer] [facility] [employer] [place] [facility] 03/24/2024 09:13:55 09/23/2024 text/html The patient retu [...] and patellofemoral compartments previous x-rays show essentially ebqj-cn-mwin changes there left worse than right. He [...] detail today with the patient. MAE Hobbs [address], [facility] [address], [place], [address], [place] [facility] 09/23/2024 12:03:01
--- NOTE | 2024-12-21 07:53 | EST_ITS ---
Patient Info Name: Mitch Pope Age: 69 years : 1955 Gender: Male Ht: 71 in Wt: 230 lbs BSA: 2.32 m2 HR: 67 bpm BP: 144 / 97 mmHg Exam Date: 12/21/2024 7:53 AM Patient Status: O Admit Date: 12/21/2024 Exam Type: CA stress ameya w NM A regadenoson stress test was performed. Staff Referring Physician: Angie Gomez Attending Provider: Angie Gomez Exercise Technologist: Soila Gann Exercise Physician: Lauro Caicedo DO Summary 1. 1. Negative lexiscan stress test for ischemic ST changes by ECG criteria. 2. 2. Baseline hypertension. 3. 3. Nuclear scan to follow and will be reported separately. Please correlate with it. 4. 4. Patient informed of the above results. Protocol: Lexiscan Stress ECG Details Stage: REST Duration (min): 1 min : 48 sec HR (bpm): 69 SBP (mmHg): 144 DBP (mmHg): 97 Stage: REST Duration (min): 12 min : 25 sec HR (bpm): 70 SBP (mmHg): 144 DBP (mmHg): 97 Stage: STAGE 1 Duration (min): 1 min : 0 sec HR (bpm): 77 SBP (mmHg): 151 DBP (mmHg): 92 Stage: RECOVERY Duration (min): 1 min : 0 sec HR (bpm): 88 SBP (mmHg): 151 DBP (mmHg): 92 Stage: RECOVERY Duration (min): 2 min : 0 sec HR (bpm): 86 SBP (mmHg): 151 DBP (mmHg): 92 Stage: RECOVERY Duration (min): 3 min : 0 sec HR (bpm): 82 SBP (mmHg): 151 DBP (mmHg): 92 Stage: RECOVERY Duration (min): 4 min : 0 sec HR (bpm): 80 SBP (mmHg): 137 DBP (mmHg): 89 Stage: RECOVERY Duration (min): 4 min : 36 sec HR (bpm): 79 SBP (mmHg): 137 DBP (mmHg): 89 Rest HR: 70 bpm Peak HR: 88 bpm Rest Sys BP: 144 mmHg Peak Sys BP: 151 mmHg Max Pred HR: 150 bpm % Max Pred HR: 59 % Target HR: 128 bpm Max RPP: 13,288 bpm*mmHg Termination Reason: Completed protocol Cardiac Symptoms: Shortness of breath Total Time: 1 min : 0 sec Rest Martinez BP: 97 mmHg Peak Martinez BP: 92 mmHg Total Dose: 0.4 mg Resting ECG Sinus rhythm. Stress ECG No ST changes. Arrhythmias None. Report Signatures
--- NOTE | 2024-12-21 07:55 | ECHO_ITS ---
Patient Info Name: Mitch Pope Age: 69 years : 1955 Gender: Male Ht: 71 in Wt: 230 lbs BSA: 2.32 m2 HR: 73 bpm BP: 181 / 102 mmHg Technical Quality: Good Exam Date: 12/21/2024 8:11 AM Patient Status: O Admit Date: 12/21/2024 Exam Type: CA echo dop color flow w con Complete two-dimensional, color flow and Doppler transthoracic echocardiogram is performed with contrast to opacify the left ventricle and to improve the deliniation of the left ventricle endocardial borders. Staff Referring Physician: Angie Gomez Exhibition Carver: Rina Bain Attending Provider: Angie Gomez Contrast/Agitated Saline Contrast/Ag. Saline: Definity Amount: 2.00 ml Administered By: Rina Bain Summary 1. Left ventricular chamber dimension is normal. 2. Left ventricular systolic function is normal, estimated at 55-60. 3. There is mild concentric increased left ventricular wall thickness. 4. The left ventricular diastolic function is grade I diastolic dysfunction. 5. Definity contrast administered improved wall motion interpretation. 6. E/e' 9 is minimally elevated. 7. Left atrial chamber dimension is mildly enlarged. 8. There is trace mitral valve regurgitation. Left Ventricle E/e' 9 is minimally elevated. Left ventricular chamber dimension is normal. Left ventricular systolic function is normal, estimated at 55-60. There is mild concentric increased left ventricular wall thickness. The left ventricular diastolic function is grade I diastolic dysfunction. Definity contrast administered improved wall motion interpretation. Right Ventricle Right ventricular chamber dimension is normal. Right ventricular systolic function is normal and with normal TAPSE 1.9 cm. Left Atria Left atrial chamber dimension is mildly enlarged. Right Atria Right atrial chamber dimension is normal. Aortic Valve The aortic valve is trileaflet. There is no aortic valve stenosis. There is no aortic valve regurgitation. Pulmonic Valve There is no pulmonic regurgitation. Mitral Valve There is no mitral valve stenosis. There is trace mitral valve regurgitation. Tricuspid Valve There is no tricuspid valve regurgitation. Pericardium/Pleural There is no pericardial effusion. Inferior Vena Cava Normal inferior vena cava with >50% collapse upon inspiration consistent with normal right atrial pressure, 5 mmHg. Aorta The aortic root size at the sinus of Valsalva is normal. Left Ventricular Outflow Tract Name Value Normal LVOT 2D LVOT Diameter 2.3 cm LVOT Doppler LVOT Peak Velocity 90 cm/s LVOT Peak Gradient 3 mmHg LVOT Mean Gradient 2 mmHg LVOT VTI 20 cm LVOT Stroke Volume 88 ml LVOT CO 6.4 l/min LVOT CI 2.8 l/min/m2 Pulmonic Valve Name Value Normal RVOT Doppler RVOT Peak Velocity 77 cm/s RVOT Peak Gradient 2 mmHg PV Doppler PV Peak Velocity 130 cm/s PV Peak Gradient 7 mmHg Mitral Valve Name Value Normal MV Diastolic Function MV E Peak Velocity 45 cm/s MV A Peak Velocity 71 cm/s MV E/A 0.6 MV Decel Time (PW) 248 ms MV Annular TDI MV E/e' (Septal) 13.0 MV E/e' (Lateral) 7.5 MV E/e' (Average) 10.2 Tricuspid Valve Name Value Normal Estimated PAP/RSVP RA Pressure 5 mmHg <=5 Aortic Valve Name Value Normal AV Doppler AV Peak Velocity 124 cm/s AV Peak Gradient 6 mmHg AV Area (Cont Eq Trip) 3.1 cm2 AV DI (Trip) 0.73 AV Regurgitation 2D LVOT Area 4.3 cm2 Ventricles Name Value Normal LV Dimensions 2D/MM IVS Diastolic Thickness (2D) 1.3 cm 0.6-1.0 LVID Diastole (2D) 5.8 cm 4.2-5.8 LVIW Diastolic Thickness (2D) 1.4 cm 0.6-1.0 LVID Systole (2D) 3.9 cm 2.5-4.0 LVOT Diameter 2.3 cm LV Mass (2D Cubed) 333.49 g 88.00-224.00 LV Mass Index (2D Cubed) 144 g/m2 49-115 Relative Wall Thickness (2D) 0.47 <=0.42 LV Fractional Shortening/Ejection Fraction 2D/MM LV Fractional Shortening (2D) 32 % 25-43 LV EF (2D Teichholz) 59 % LV Diastolic Volume (4C MOD) 130 ml LV EF (4C MOD) 59 % LV Diastolic Volume (2C MOD) 125 ml LV EF (2C MOD) 54 % LV Diastolic Volume (BP MOD) 128 ml 62-150 LV Diastolic Volume Index (BP MOD) 55 ml/m2 34-74 LV Systolic Volume (BP MOD) 57 ml 21-61 LV Systolic Volume Index (BP MOD) 25 ml/m2 11-31 LV EF (BP MOD) 55 % 52-72 LV Diastolic Length (4C) 9.5 cm LV Systolic Length (4C) 7.2 cm LV Stroke Volume (4C MOD) 77 ml Atria Name Value Normal LA Dimensions LA Volume (4C A-L) 81 ml LA Volume (BP A-L) 83 ml RA Dimensions RA Systolic Major Copl[place] Length (4C) 5.9 cm 2.1-2.7 RA Area (4C) 19.3 cm2 <=18.0 Report Signatures
--- NOTE | 2024-12-21 09:19 | IVDEFINITY ---
Prior to administration of IV Definity the patient was educated on the risks and benefits of the imaging enhancing agent including potential adverse side effects. The patient verbalized understanding. Allergies were verified. No exclusion criteria were identified and at least one of the following inclusion criteria were met: 1) physician request, 2) patient technically difficult to image (per the [place] [employer] Echocardi[employer] guidelines of two or more segments not discernable within the apical view), or 3) questionable left ventricular function. ?
[2024-12-21] MEDS: PERFLUTREN LIPID MICROSPHERES 1.5 ML VIAL DILUTED TO 10 ML TOTAL VOLUME IV PUSH (09:30)
== END 2024-12-21 07:43 | disposition home or self-care (01) ==
LOC: ANHCARD 07:44
PROVIDERS: PCP Family Medicine; Visit Provider Family Medicine
DX: R00.2 Palpitations (principal); R07.9 Chest pain, unspecified; R42 Dizziness and giddiness
CPT/HCPCS: 78452; 93017; A9502; C8929; J2785; Q9957